=== PATIENT | male | born 1995 | race African-American/Black ===

== ENCOUNTER 2018-01-21 21:21 | Emergency (ER) | payer OTHER ==
--- NOTE | 2018-01-21 23:55 | RADIOLOGY REPORT (SQ) ---
EXAM DESCRIPTION: XR ELBOW 3 VIEWS COMPLETED DATE/TME: 01/21/2018 22:01 CLINICAL HISTORY: 22 years Male, PAIN COMPARISON: None. Findings: Minimal osteophyte at the ulnar olecranon. Moderate swelling-olecranon bursitis of the posterior right elbow. Bones, joints, and soft tissues of the RIGHT XR ELBOW 4 VIEWS appear otherwise intact. IMPRESSION: Moderate swelling-olecranon bursitis of the posterior right elbow.
--- NOTE | 2018-01-22 00:38 | ER Document Report ---
ED General - General Chief Complaint: Elbow Injury Stated Complaint: RIGHT ELBOW PAIN Time Seen by Provider: 01/22/18 00:12 TRAVEL OUTSIDE OF THE [place] IN LAST 30 DAYS: No - HPI Patient complains to provider of: Right elbow pain Notes: Patient coming in for acute right elbow pain and right elbow swelling states happened today while at work. Patient works at a local [employer]. Patient denies any injury denies any chronic use of his elbow except for lifting objects at work. Denies any fever chills nausea vomiting diarrhea no past medical history does not smoke does not use drugs. Denies any trauma Past Medical History - Social History Smoking Status: Current Every Day Smoker Family History: Reviewed & Not Pertinent Review of Systems - Review of Systems Constitutional: No symptoms reported EENT: No symptoms reported Cardiovascular: No symptoms reported Respiratory: No symptoms reported Gastrointestinal: No symptoms reported Genitourinary: No symptoms reported Male Genitourinary: No symptoms reported Musculoskeletal: Other - Elbow pain Skin: No symptoms reported Hematologic/Lymphatic: No symptoms reported Neurological/Psychological: No symptoms reported -: Yes All other systems reviewed and negative Physical Exam - Vital signs Vitals: Temp Pulse BP Pulse Ox 98.5 F 61 130/64 H 98 01/21/18 21:50 01/21/18 21:50 01/21/18 21:50 01/21/18 21:50 Interpretation: Normal - General General appearance: Appears well, Alert - HEENT Head: Normocephalic, Atraumatic Eyes: Normal Pupils: PERRL - Respiratory Respiratory status: No respiratory distress Chest status: Nontender Breath sounds: Normal Chest palpation: Normal - Cardiovascular Rhythm: Regular Heart sounds: Normal auscultation Murmur: No - Abdominal Inspection: Normal Distension: No distension Bowel sounds: Normal Tenderness: Nontender Organomegaly: No organomegaly - Back Back: Normal, Nontender - Extremities General upper extremity: Nontender, Normal color, Normal ROM, Normal temperature. No: Normal inspection - Examination of the right elbow is consistent with olecranon bursitis no signs of infection General lower extremity: Normal inspection, Nontender, Normal color, Normal ROM , Normal temperature, Normal weight bearing. No: Sandrita's sign - Neurological Neuro grossly intact: Yes Cognition: Normal Orientation: AAOx4 Jan Coma Scale Eye Opening: Spontaneous Jan Coma Scale Verbal: Oriented [place] Coma Scale Motor: Obeys Commands [place] Coma Scale Total: 15 Speech: Normal Motor strength normal: LUE, RUE, LLE, RLE Sensory: Normal - Psychological Associated symptoms: Normal affect, Normal mood - Skin Skin Temperature: Warm Skin Moisture: Dry Skin Color: Normal Course - Re-evaluation Re-evalutation: 01/22/18 04:50 Patient with obvious olecranon bursitis education about treatment of bursitis was given to the patient patient will be discharged home. - Vital Signs Vital signs: Temp Pulse Resp BP Pulse Ox 98.5 F 90 18 118/71 99 01/21/18 21:50 01/22/18 01:56 01/22/18 01:56 01/22/18 01:56 01/22/18 01:56 Discharge - Discharge Clinical Impression: Olecranon bursitis, right elbow Condition: Good Disposition: HOME, SELF-CARE Instructions: Olecranon Bursitis ([facility]) Additional Instructions: Your evaluation is consistent with a right elbow bursitis. Please take anti- inflammatory medication along with Tylenol as prescribed. He may also apply warm packs ice packs to the area. He may wear the Amos bandage to apply compression to the site to help with the swelling. He may also follow-up with orthopedic doctors if this continues to bother you sometimes the orthopedist will drain your bursa sac. Will recommend following up with 1 of the local urgent cares for completion of your work release forms. Please review discharge instructions carefully. Prescriptions: Ibuprofen [Motrin 600 mg Tablet] 600 mg PO Q8HP PRN #21 tablet PRN Reason: Forms: Return to Work Referrals: OPAL JOY PA-C [COMMUNITY BASED STAFF] - Follow up as needed QIAN LUI NP [COMMUNITY BASED STAFF] - Follow up as needed SAVI GUERRERO MD [ACTIVE STAFF] - Follow up as needed
[2018-01-22 01:58] VITALS: BP 118/71
== END 2018-01-22 01:30 | disposition home or self-care (01) ==
LOC: ER 21:21
DX: M70.821 Other soft tissue disorders related to use, overuse and pressure, right upper arm (principal); X50.9XXA Other and unspecified overexertion or strenuous movements or postures, initial encounter; Y92.512 Supermarket, store or market as the place of occurrence of the external cause; Y99.0 Civilian activity done for income or pay
CPT/HCPCS: 99283

== ENCOUNTER 2018-01-23 15:42 | Emergency (ER) | payer OTHER ==
[2018-01-23] MEDS ORDERED: CEFTRIAXONE INJ 1000 MG VIAL IM ONE (16:36)
--- NOTE | 2018-01-23 16:52 | ER Document Report ---
ED Extremity Problem, Upper - General Chief Complaint: elbow pain Stated Complaint: ELBOW SWELLING Time Seen by Provider: 01/23/18 16:35 Notes: Chief complaint: Right elbow pain History of complain:( obtained from----patient) 22 years old female presents today with 3-day history of right elbow pain swelling and redness. Injured at work in [employer]. No fever chills. Onset: Gradual Duration: As above Severity: Moderate Quality: Sharp Context: As above Exacerbating factor and relieving factors: Flexion and extension of the elbow REVIEW OF SYSTEMS: CONSTITUTIONAL : Denies fever, chills, or sweats. Denies recent illness. EENT: Denies eye, ear, throat, or mouth pain or symptoms. Denies nasal or sinus congestion or discharge. Denies throat, tongue, or mouth swelling or difficulty swallowing. CARDIOVASCULAR: Denies chest pain. Denies palpitations or racing or irregular heart beat. Denies ankle edema. RESPIRATORY: Denies cough, cold, or chest congestion. Denies shortness of breath, difficulty breathing, or wheezing. GASTROINTESTINAL: Denies distention. Denies nausea, vomiting, or diarrhea. Denies blood in vomitus, stools, or per rectum. Denies black, tarry stools. Denies constipation. GENITOURINARY: Denies difficulty urinating, painful urination, burning, frequency, blood in urine, or discharge. FEMALE GENITOURINARY: Denies vaginal bleeding, heavy or abnormal periods, irregular periods. Denies vaginal discharge or odor. MUSCULOSKELETAL: Denies back or neck pain or stiffness. Denies joint pain or swelling. SKIN: Denies rash, lesions or sores. HEMATOLOGIC : Denies easy bruising or bleeding. LYMPHATIC: Denies swollen, enlarged glands. NEUROLOGICAL: Denies confusion or altered mental status. Denies passing out or loss of consciousness. Denies dizziness or lightheadedness. Denies headache. Denies weakness or paralysis or loss of use of either side. Denies problems with gait or speech. Denies sensory loss, numbness, or tingling. Denies seizures. PSYCHIATRIC: Denies anxiety or stress. Denies depression, suicidal ideation, or homicidal ideation. ALL OTHER SYSTEMS REVIEWED AND NEGATIVE. PHYSICAL EXAMINATION: GENERAL: Well-appearing, well-nourished and in no acute distress. HEAD: Atraumatic, normocephalic. EYES: Pupils equal round and reactive to light, extraocular movements intact, conjunctiva are normal. ENT: Nares patent, oropharynx clear without exudates. Moist mucous membranes. NECK: Normal range of motion, supple without lymphadenopathy LUNGS: Breath sounds clear to auscultation bilaterally and equal. No wheezes rales or rhonchi. HEART: Regular rate and rhythm without murmurs ABDOMEN: Soft, nontender, nondistended abdomen. No guarding, no rebound. No masses appreciated. Examination of genitals-deferred Musculoskeletal: Right elbow-over the olecranon bursa region it is erythematous warm and tender to touch NEUROLOGICAL: Cranial nerves grossly intact. Normal speech, normal gait. Normal sensory, motor exams PSYCH: Normal mood, normal affect. SKIN: Warm, Dry, normal turgor, no rashes or lesions noted. Dictation was performed using [employer] voice recognition software TRAVEL OUTSIDE OF THE [place] IN LAST 30 DAYS: No - HPI Notes: Dictated - Related Data Allergies/Adverse Reactions: latex Allergy (Verified 01/23/18 15:52) Past Medical History - Social History Smoking Status: Current Every Day Smoker Chew tobacco use (# tins/day): No Frequency of alcohol use: None Drug Abuse: None Lives with: Family Family History: Reviewed & Not Pertinent Patient has suicidal ideation: No Patient has homicidal ideation: No Renal/ Medical History: Denies: Hx Peritoneal Dialysis Review of Systems - Review of Systems Notes: Dictated Physical Exam - Vital signs Vitals: Temp Pulse Resp BP Pulse Ox 98.2 F 67 16 117/63 97 01/23/18 15:54 01/23/18 15:54 01/23/18 15:54 01/23/18 15:54 01/23/18 15:54 - Notes Notes: Dictated Course - Vital Signs Vital signs: Temp Pulse Resp BP Pulse Ox 98.2 F 67 16 117/63 97 01/23/18 15:54 01/23/18 15:54 01/23/18 15:54 01/23/18 15:54 01/23/18 15:54 Discharge - Discharge Clinical Impression: Cellulitis of right elbow Olecranon bursitis Qualifiers: Laterality: right Qualified Code(s): M70.21 - Olecranon bursitis, right elbow Condition: Fair Disposition: HOME, SELF-CARE Instructions: Cellulitis ([facility]) Prescriptions: Cephalexin Monohydrate [Keflex 500 mg Capsule] 500 mg PO Q6H 7 Days capsule
[2018-01-23 16:58] LABS: ABSOLUTE EOSINOPHILS # (AUTO) 0.1 10^3/uL (0.0-0.6); ABSOLUTE LYMPHOCYTES (AUTO) 1.9 10^3/uL (0.5-4.7); ABSOLUTE MONOCYTES (AUTO) 0.8 10^3/uL (0.1-1.4); ABSOLUTE NEUT (AUTO) 5.4 10^3/uL (1.7-8.2); BASOPHILS % (AUTO) 0.6 % (0-2); EOSINOPHILS % (AUTO) 1.5 % (0-6); HEMATOCRIT 44.5 % (37.9-51.0); LYMPHOCYTES % (AUTO) 23.2 % (13-45); MEAN CORPUSCULAR HEMOGLOBIN 31.1 pg (27.0-33.4); MEAN CORPUSCULAR HGB CONC 33.7 g/dL (32.0-36.0); MEAN CORPUSCULAR VOLUME 92 fl (80-97); MONOCYTES % (AUTO) 9.3 % (3-13); PLATELET COUNT 190 10^3/uL (150-450); RED BLOOD COUNT 4.82 10^6/uL (4.35-5.55); RED CELL DISTRIBUTION WIDTH 13.6 % (11.5-14.0); SEGMENTED NEUTROPHILS % (AUTO) 65.4 % (42-78); TOTAL CELLS COUNTED % (AUTO) 100 %; WHITE BLOOD COUNT 8.3 10^3/uL (4.0-10.5)
[2018-01-23 17:14] VITALS: BP 111/66
== END 2018-01-23 17:16 | disposition home or self-care (01) ==
LOC: ER 15:42
DX: S59.901A Unspecified injury of right elbow, initial encounter (principal); L03.113 Cellulitis of right upper limb; M70.21 Olecranon bursitis, right elbow; X58.XXXA Exposure to other specified factors, initial encounter; Z91.040 Latex allergy status; F17.200 Nicotine dependence, unspecified, uncomplicated
CPT/HCPCS: 99284; 96372; 36415; 87040; 85025; J0696

== ENCOUNTER 2018-08-21 15:56 | Emergency (ER) | payer SELFPAY ==
[2018-08-21 16:08] VITALS: BP 118/93
[2018-08-21] MEDS ORDERED: PENICILLIN G BENZATHINE 1.2 MILLION UNIT/2 ML DISP.SYRIN IM ONE (16:53)
[2018-08-21] MEDS ORDERED: DEXAMETHASONE 4 MG TABLET PO ONE (16:53)
[2018-08-21] MEDS ORDERED: IBUPROFEN 800 MG TABLET PO ONE (16:53)
[2018-08-21] MEDS ORDERED: LIDOCAINE 2% VISCOUS SOLN 20 ML UDCUP PO ONE (16:53)
[2018-08-21] MEDS ORDERED: ONDANSETRON 4 MG TAB.RAPDIS PO ONE (16:55)
--- NOTE | 2018-08-21 16:55 | ER Document Report ---
HPI - HPI Patient complains to provider of: Sore throat Time Seen by Provider: 08/21/18 16:44 Onset/Duration: Persistent Quality of pain: Achy Pain Level: 4 Context: Patient presents complaining of sore throat with exudate for the past 2 days. Patient is concerned he has strep pharyngitis. Patient reports headache with nausea. Associated Symptoms: Headache, Nausea, Sore throat. denies: Fever, Vomiting Exacerbated by: Denies Relieved by: Denies Similar symptoms previously: Yes Recently seen / treated by doctor: No - ROS ROS below otherwise negative: Yes Systems Reviewed and Negative: Yes All other systems reviewed and negative - CONSTITUTIONAL Constitutional: REPORTS: Chills - EENT EENT: REPORTS: Sore Throat. DENIES: Nasal Drainage-Clear - NEURO Neurology: REPORTS: Headache - RESPIRATORY Respiratory: DENIES: Coughing - GASTROINTESTINAL Gastrointestinal: REPORTS: Nausea. DENIES: Patient vomiting - MUSCULOSKELETAL Musculoskeletal: DENIES: Back Pain - DERM Skin Color: Normal Skin Problems: None Past Medical History - General Information source: Patient - Social History Smoking Status: Current Every Day Smoker Smoking Education Provided: Yes Frequency of alcohol use: Occasional Drug Abuse: None Occupation: none Family History: Reviewed & Not Pertinent - Medical History Medical History: Negative Renal/ Medical History: Denies: Hx Peritoneal Dialysis Past Surgical History: Reports: Hx Neurologic Surgery Vertical Provider Document - CONSTITUTIONAL Agree With Documented VS: Yes Exam Limitations: No Limitations General Appearance: WD/WN, No Apparent Distress - INFECTION CONTROL TRAVEL OUTSIDE OF THE [place] IN LAST 30 DAYS: No - HEENT HEENT: Atraumatic, Normocephalic, Pharyngeal Exudate, Pharyngeal Tenderness, Pharyngeal Erythema. negative: Tympanic Membrane Red, Tympanic Membrane Bulging - NECK Neck: Normal Inspection, Supple. negative: Lymphadenopathy-Left, Lymphadenopathy-Right - RESPIRATORY Respiratory: Breath Sounds Normal, No Respiratory Distress - CARDIOVASCULAR Cardiovascular: Regular Rate, Regular Rhythm, No Murmur - BACK Back: Normal Inspection - MUSCULOSKELETAL/EXTREMETIES Musculoskeletal/Extremeties: [place] - NEURO Level of Consciousness: Awake, Alert, Appropriate Motor/Sensory: No Motor Deficit - DERM Integumentary: Warm, Dry, No Rash Course - Re-evaluation Re-evalutation: 08/21/18 16:54 Patient's respirations even and unlabored, patient nontoxic in appearance. No potential airway compromise. No concern for peritonsillar abscess. Throat culture is obtained and we will treat for tonsillitis at this time. - Vital Signs Vital signs: Temp Pulse Resp BP Pulse Ox 99.8 F 95 14 118/93 H 98 08/21/18 16:07 08/21/18 16:07 08/21/18 16:07 08/21/18 16:07 08/21/18 16:07 Discharge - Discharge Clinical Impression: Tonsillitis Condition: Stable Disposition: HOME, SELF-CARE Instructions: Corticosteroid Medication ([facility]), Sore Throat ([facility]), Tonsillitis ([facility]) Additional Instructions: Return immediately for any new or worsening symptoms Followup with your primary care provider, call tomorrow to make a followup appointment Increase oral fluids and stay well-hydrated Prescriptions: Naproxen [Naprosyn 250 Nmg Tablet] 1 tab PO BID #14 tablet Forms: Smoking Cessation Education Referrals: [facility] [Provider Group] - Follow up as needed [facility] [Provider Group] - Follow up as needed
== END 2018-08-21 17:25 | disposition home or self-care (01) ==
LOC: ER 15:56
DX: J03.90 Acute tonsillitis, unspecified (principal); R51 Headache; R11.0 Nausea; R68.83 Chills (without fever); F17.200 Nicotine dependence, unspecified, uncomplicated
CPT/HCPCS: 99282; 96372; 87070; S0119; J3490; J0561

== ENCOUNTER 2018-10-09 19:57 | Emergency (ER) | payer OTHER ==
[2018-10-09 20:22] VITALS: BP 142/71
--- NOTE | 2018-10-09 21:09 | RADIOLOGY REPORT (SQ) ---
3 VIEWS OF LEFT ANKLE HISTORY: Ankle injury.. COMPARISON: None. FINDINGS: No acute fracture or dislocation is seen. Chronic fracture abutting the lateral malleolus. Large ankle joint effusion. The joint spaces are preserved. The soft tissues are swollen. IMPRESSION: No acute fracture or malalignment.
[2018-10-09] MEDS ORDERED: HYDROCODONE/ACETAMINOPHEN 5-325 MG (6 TAB/ER DISP) PO PRN (21:20)
--- NOTE | 2018-10-09 21:39 | ER Document Report ---
HPI - HPI Patient complains to provider of: Left ankle injury Time Seen by Provider: 10/09/18 21:05 Onset: This evening Onset/Duration: Sudden Quality of pain: Achy Pain Level: 3 Context: Patient states he was going downstairs slipped and rolled his ankle. Patient with left lateral ankle tenderness. Associated Symptoms: Other - Left ankle pain Exacerbated by: Standing, Movement, Walking Relieved by: Denies Similar symptoms previously: Yes Recently seen / treated by doctor: No - ROS ROS below otherwise negative: Yes Systems Reviewed and Negative: Yes All other systems reviewed and negative - NEURO Neurology: DENIES: Weakness - GASTROINTESTINAL Gastrointestinal: DENIES: Nausea, Patient vomiting - MUSCULOSKELETAL Musculoskeletal: REPORTS: Extremity pain - left ankle, Swelling - DERM Skin Color: Normal Skin Problems: None Past Medical History - General Information source: Patient - Social History Smoking Status: Current Every Day Smoker Frequency of alcohol use: Occasional Drug Abuse: None Occupation: Moving and storage Family History: Reviewed & Not Pertinent Patient has suicidal ideation: No Patient has homicidal ideation: No - Medical History Medical History: Negative Renal/ Medical History: Denies: Hx Peritoneal Dialysis Past Surgical History: Reports: Hx Neurologic Surgery - plate in head Vertical Provider Document - CONSTITUTIONAL Agree With Documented VS: Yes Exam Limitations: No Limitations General Appearance: WD/WN, No Apparent Distress - INFECTION CONTROL TRAVEL OUTSIDE OF THE [place] IN LAST 30 DAYS: No - HEENT HEENT: Atraumatic, Normocephalic - NECK Neck: Normal Inspection - RESPIRATORY Respiratory: No Respiratory Distress - CARDIOVASCULAR Pulses: Normal: Dorsalis pedis - MUSCULOSKELETAL/EXTREMETIES Musculoskeletal/Extremeties: MAEW, Tender - left ankle tenderness to lateral malleolar area with 2+ edema - NEURO Level of Consciousness: Awake, Alert, Appropriate Motor/Sensory: No Motor Deficit - DERM Integumentary: Warm, Dry, No Rash Course - Vital Signs Vital signs: Temp Pulse Resp BP Pulse Ox 98.5 F 59 L 14 142/71 H 98 10/09/18 20:21 10/09/18 20:21 10/09/18 20:21 10/09/18 20:21 10/09/18 20:21 - Diagnostic Test Radiology reviewed: Image reviewed, Reports reviewed Procedures - Immobilization Left Ankle Pre-Proc Neuro Vasc Exam: Normal Immobilizer type: Ankle stirrup Performed by: PCT Post-Proc Neuro Vasc Exam: Normal Alignment checked and good: Yes Discharge - Discharge Clinical Impression: Left ankle sprain Qualifiers: Encounter type: initial encounter Involved ligament of ankle: unspecified ligament Qualified Code(s): S93.402A - Sprain of unspecified ligament of left ankle, initial encounter Condition: Stable Disposition: HOME, SELF-CARE Instructions: Ankle Stirrup Splint ([facility]), Use of Crutches ([facility]), Ice & Elevation ([facility]), Oral Narcotic Medication ([facility]), Sprained Ankle ([facility]) Additional Instructions: Return immediately for any new or worsening symptoms Followup with your primary care provider, call tomorrow to make a followup appointment Follow-up with orthopedics for any persistent pain or problems Prescriptions: Naproxen [Naprosyn 250 Nmg Tablet] 1 tab PO BID #14 tablet Forms: Return to Work Referrals: [facility] [Provider Group] - Follow up as needed
== END 2018-10-09 22:20 | disposition home or self-care (01) ==
LOC: ER 19:57
PROC: 2W3RX1Z Immobilization of Left Lower Leg using Splint (ICD-10-PCS; principal; 2018-10-09)
DX: S93.402A Sprain of unspecified ligament of left ankle, initial encounter (principal); M25.572 Pain in left ankle and joints of left foot; X50.1XXA Overexertion from prolonged static or awkward postures, initial encounter; F17.200 Nicotine dependence, unspecified, uncomplicated
CPT/HCPCS: 99283; 73610; 29515; L1902